=== PATIENT | female | born 1925 | race Caucasian/White ===

== ENCOUNTER 2017-04-13 14:10 | Inpatient (IN) | payer MEDICARE ==
[2017-04-13] VITALS (8 sets, daily range): BP systolic 155–189; BP diastolic 52–76
[~2017-04-13] VITALS: Ht 165.1 cm; Wt 60.0 kg
[2017-04-13] MEDS ORDERED: CALCIUM 600 +600 MG PO (14:44)
[2017-04-13] MEDS ORDERED: PAXIL30 MG PO (14:46)
[2017-04-13] MEDS ORDERED: LEVOTHYROXIN50 MCG PO (14:46)
[2017-04-13] MEDS ORDERED: LOPRESSOR 550 MG/TAB PO (14:47)
[2017-04-13] MEDS ORDERED: BENICAR HCT1 TA1 PO (14:49)
[2017-04-13] MEDS ORDERED: PRAVASTATIN SOD40 MG PO (14:49)
[2017-04-13] MEDS ORDERED: ARICEPT5 MG PO (14:50)
[2017-04-13 14:51] LABS: HEMATOCRIT 36.6 % (37.0-47.0); HEMOGLOBIN 11.9 g/dl (12.0-16.0); IMMATURE GRANULOCYTES 0.4 % (0.0-1.0); MEAN CELL VOLUME 94.6 fL CALC (80.0-100.0); MEAN CORPUSCULAR HGB 30.7 pG CALC (26.0-32.0); MEAN CORPUSCULAR HGB CONC 32.5 g/L CALC (32.0-36.0); NEUT# 3.65 thou/uL (2.00-7.15); RED BLOOD COUNT 3.87 mill/uL (4.20-5.60); RED CELL DISTRI WIDTH 13.5 % (11.5-15.5)
[2017-04-13] MEDS ORDERED: TESSALON PER100 MG PO (14:51)
[2017-04-13] MEDS ORDERED: FOSAMAX PLUS PO (14:51)
[2017-04-13] MEDS ORDERED: MOTRIN800 MG PO (14:52)
[2017-04-13 15:13] LABS: ALKALINE PHOSPHATASE 50 u/l (38-126); ANION GAP 16 (6-22 (CALC)); BILIRUBIN, TOTAL 0.5 mg/dL (0.0-1.4); BUN 20 mg/dL (8-23); BUN/CREATININE RATIO 18 (12-20 (CALC)); CALCIUM 9.7 mg/dL (8.4-10.2); CARBON DIOXIDE 28 mmol/l (22-30); CHLORIDE 103 mmol/l (95-108); CREATININE 1.1 mg/dL (0.5-1.0); GFR 47 ML/MIN (>=60 (CALC)); GFR FOR AFR.AMER. 57 ML/MIN (>=60 (CALC)); GLUCOSE 93 mg/dL (82-115); POTASSIUM 3.8 mmol/l (3.5-5.1); SGOT/AST 27 u/l (9-36); SGPT/ALT 30 u/l (11-66); SODIUM 143 mmol/l (137-146); TOTAL PROTEIN 6.3 g/dL (6.3-8.2)
[2017-04-13 15:24] LABS: URINE BILIRUBIN - DIPSTICK NEGATIVE (NEGATIVE); URINE BLOOD DIPSTICK TRACE-LYSED (NEGATIVE); URINE CLARITY CLEAR; URINE COLOR YELLOW; URINE GLUCOSE - DIPSTICK NEGATIVE (NEGATIVE); URINE KETONE NEGATIVE (NEGATIVE); URINE LEUK ESTERASE NEGATIVE (NEGATIVE); URINE NITRITE - DIPSTICK NEGATIVE (Negative); URINE PH 7.5 (4.5-8.0); URINE PROTEIN - DIPSTICK 100 mg/dL (NEG-TRACE); URINE UROBILINOGEN - DIPSTICK 0.2 E.U./dL (0.2)
[2017-04-13 15:24] LABS: MYOGLOBIN 103 ng/mL (0 - 62)
[2017-04-13 15:33] LABS: URINE SQUAMOUS EPITHELIAL CELL FEW EPI/hpf (0-FEW)
[2017-04-14] VITALS (15 sets, daily range): BP systolic 114–171; BP diastolic 54–92
[2017-04-14 06:37] LABS: HEMATOCRIT 37.3 % (37.0-47.0); IMMATURE GRANULOCYTES 0.3 % (0.0-1.0); MEAN CELL VOLUME 93.7 fL CALC (80.0-100.0); MEAN CORPUSCULAR HGB 30.2 pG CALC (26.0-32.0); MEAN CORPUSCULAR HGB CONC 32.2 g/L CALC (32.0-36.0); NEUT# 6.67 thou/uL (2.00-7.15); RED BLOOD COUNT 3.98 mill/uL (4.20-5.60); RED CELL DISTRI WIDTH 13.4 % (11.5-15.5)
[2017-04-14 06:55] LABS: ALBUMIN 3.9 g/dL (3.2-5.0); ALKALINE PHOSPHATASE 59 u/l (38-126); ANION GAP 14 (6-22 (CALC)); BILIRUBIN, TOTAL 0.6 mg/dL (0.0-1.4); BUN 15 mg/dL (8-23); BUN/CREATININE RATIO 17 (12-20 (CALC)); CARBON DIOXIDE 28 mmol/l (22-30); CHLORIDE 102 mmol/l (95-108); CREATININE 0.9 mg/dL (0.5-1.0); GFR 59 ML/MIN (>=60 (CALC)); GFR FOR AFR.AMER. > 60 ML/MIN (>=60 (CALC)); GLUCOSE 145 mg/dL (82-115); POTASSIUM 3.9 mmol/l (3.5-5.1); SGOT/AST 28 u/l (9-36); SGPT/ALT 31 u/l (11-66); SODIUM 141 mmol/l (137-146)
[2017-04-14 17:20] LABS: HEMATOCRIT 34.7 % (37.0-47.0); HEMOGLOBIN 11.3 g/dl (12.0-16.0); IMMATURE GRANULOCYTES 0.3 % (0.0-1.0); MEAN CELL VOLUME 93.3 fL CALC (80.0-100.0); MEAN CORPUSCULAR HGB 30.4 pG CALC (26.0-32.0); MEAN CORPUSCULAR HGB CONC 32.6 g/L CALC (32.0-36.0); NEUT# 7.01 thou/uL (2.00-7.15); RED BLOOD COUNT 3.72 mill/uL (4.20-5.60); RED CELL DISTRI WIDTH 13.3 % (11.5-15.5)
[2017-04-14 17:57] LABS: ANION GAP 13 (6-22 (CALC)); BUN 13 mg/dL (8-23); BUN/CREATININE RATIO 16 (12-20 (CALC)); CALCIUM 8.5 mg/dL (8.4-10.2); CARBON DIOXIDE 26 mmol/l (22-30); CHLORIDE 100 mmol/l (95-108); CREATININE 0.8 mg/dL (0.5-1.0); GFR > 60 ML/MIN (>=60 (CALC)); GFR FOR AFR.AMER. > 60 ML/MIN (>=60 (CALC)); GLUCOSE 148 mg/dL (82-115); POTASSIUM 3.4 mmol/l (3.5-5.1); SODIUM 136 mmol/l (137-146)
[2017-04-15] VITALS (11 sets, daily range): BP systolic 107–200; BP diastolic 51–99
[2017-04-15 06:00] LABS: HEMATOCRIT 41.5 % (37.0-47.0); HEMOGLOBIN 13.9 g/dl (12.0-16.0); IMMATURE GRANULOCYTES 0.6 % (0.0-1.0); MEAN CORPUSCULAR HGB 30.5 pG CALC (26.0-32.0); MEAN CORPUSCULAR HGB CONC 33.5 g/L CALC (32.0-36.0); NEUT# 12.55 thou/uL (2.00-7.15); RED BLOOD COUNT 4.56 mill/uL (4.20-5.60); RED CELL DISTRI WIDTH 13.2 % (11.5-15.5)
[2017-04-15 06:22] LABS: ALBUMIN 4.4 g/dL (3.2-5.0); ALKALINE PHOSPHATASE 79 u/l (38-126); ANION GAP 17 (6-22 (CALC)); BILIRUBIN, TOTAL 0.7 mg/dL (0.0-1.4); BUN 9 mg/dL (8-23); BUN/CREATININE RATIO 13 (12-20 (CALC)); CALCIUM 8.9 mg/dL (8.4-10.2); CARBON DIOXIDE 25 mmol/l (22-30); CHLORIDE 94 mmol/l (95-108); CREATININE 0.7 mg/dL (0.5-1.0); GFR > 60 ML/MIN (>=60 (CALC)); GFR FOR AFR.AMER. > 60 ML/MIN (>=60 (CALC)); GLUCOSE 206 mg/dL (82-115); POTASSIUM 3.3 mmol/l (3.5-5.1); SGOT/AST 44 u/l (9-36); SGPT/ALT 33 u/l (11-66); SODIUM 133 mmol/l (137-146); TOTAL PROTEIN 6.9 g/dL (6.3-8.2)
[2017-04-15 16:36] LABS: TSH, 3RD GENERATION 1.97 uIU/mL (0.47 - 4.68)
[2017-04-16] VITALS (18 sets, daily range): BP systolic 103–138; BP diastolic 47–80
[2017-04-16 03:49] LABS: URINE BLOOD DIPSTICK LARGE (NEGATIVE); URINE CLARITY CLEAR; URINE COLOR YELLOW; URINE GLUCOSE - DIPSTICK NEGATIVE (NEGATIVE); URINE KETONE TRACE mg/dL (NEGATIVE); URINE LEUK ESTERASE SMALL (Negative); URINE NITRITE - DIPSTICK NEGATIVE (Negative); URINE PROTEIN - DIPSTICK >=300 mg/dL (NEG-TRACE); URINE SPECIFIC GRAVITY >=1.030; URINE UROBILINOGEN - DIPSTICK 0.2 E.U./dL (0.2)
[2017-04-16 04:03] LABS: URINE BILIRUBIN - DIPSTICK NEGATIVE (NEGATIVE)
[2017-04-16 04:30] LABS: URINE RBC 25-50 RBC/hpf (0-5); URINE SQUAMOUS EPITHELIAL CELL FEW EPI/hpf (0-FEW)
[2017-04-16 04:32] LABS: URINE BACTERIA MANY hpf; URINE COARSE GRANULAR CAST FEW lpf; URINE HYALINE CAST FEW lpf (NONE-RARE); URINE MUCUS MODERATE hpf (NONE-FEW); URINE RED BLOOD CELL CAST FEW lpf
[2017-04-16 05:23] LABS: ALBUMIN 3.3 g/dL (3.2-5.0); BILIRUBIN, TOTAL 0.6 mg/dL (0.0-1.4); CALCIUM 8.2 mg/dL (8.4-10.2); CREATININE 1.6 mg/dL (0.5-1.0); POTASSIUM 3.3 mmol/l (3.5-5.1); TOTAL PROTEIN 5.6 g/dL (6.3-8.2)
[2017-04-16 05:59] LABS: HEMATOCRIT 36.6 % (37.0-47.0); HEMOGLOBIN 12.6 g/dl (12.0-16.0); IMMATURE GRANULOCYTES 0.5 % (0.0-1.0); MEAN CELL VOLUME 90.1 fL CALC (80.0-100.0); MEAN CORPUSCULAR HGB CONC 34.4 g/L CALC (32.0-36.0); NEUT# 10.79 thou/uL (2.00-7.15); RED BLOOD COUNT 4.06 mill/uL (4.20-5.60); RED CELL DISTRI WIDTH 13.4 % (11.5-15.5)
[2017-04-17 04:20] VITALS: BP 136/72
[2017-04-17 06:14] LABS: HEMATOCRIT 33.6 % (37.0-47.0); HEMOGLOBIN 11.3 g/dl (12.0-16.0); IMMATURE GRANULOCYTES 0.7 % (0.0-1.0); MEAN CELL VOLUME 90.8 fL CALC (80.0-100.0); MEAN CORPUSCULAR HGB 30.5 pG CALC (26.0-32.0); MEAN CORPUSCULAR HGB CONC 33.6 g/L CALC (32.0-36.0); NEUT# 7.85 thou/uL (2.00-7.15); RED BLOOD COUNT 3.7 mill/uL (4.20-5.60); RED CELL DISTRI WIDTH 13.5 % (11.5-15.5)
[2017-04-17 06:27] LABS: ALBUMIN 2.9 g/dL (3.2-5.0); ALKALINE PHOSPHATASE 55 u/l (38-126); ANION GAP 10 (6-22 (CALC)); BILIRUBIN, TOTAL 0.5 mg/dL (0.0-1.4); BUN 21 mg/dL (8-23); BUN/CREATININE RATIO 20 (12-20 (CALC)); CALCIUM 8.2 mg/dL (8.4-10.2); CARBON DIOXIDE 23 mmol/l (22-30); CHLORIDE 101 mmol/l (95-108); GFR 52 ML/MIN (>=60 (CALC)); GFR FOR AFR.AMER. > 60 ML/MIN (>=60 (CALC)); GLUCOSE 138 mg/dL (82-115); POTASSIUM 3.5 mmol/l (3.5-5.1); SGOT/AST 48 u/l (9-36); SGPT/ALT 35 u/l (11-66); SODIUM 131 mmol/l (137-146); TOTAL PROTEIN 5.1 g/dL (6.3-8.2)
[2017-04-17 07:53] VITALS: BP 126/73
[2017-04-17 11:05] VITALS: BP 122/64
[2017-04-17 15:40] VITALS: BP 130/66
[2017-04-17 19:00] VITALS: BP 141/59
[2017-04-17 23:00] VITALS: BP 147/68
[2017-04-18 04:38] VITALS: BP 154/67
[2017-04-18 06:05] LABS: HEMATOCRIT 33.3 % (37.0-47.0); HEMOGLOBIN 11.1 g/dl (12.0-16.0); IMMATURE GRANULOCYTES 0.4 % (0.0-1.0); MEAN CELL VOLUME 92.2 fL CALC (80.0-100.0); MEAN CORPUSCULAR HGB 30.7 pG CALC (26.0-32.0); MEAN CORPUSCULAR HGB CONC 33.3 g/L CALC (32.0-36.0); NEUT# 6.53 thou/uL (2.00-7.15); RED BLOOD COUNT 3.61 mill/uL (4.20-5.60); RED CELL DISTRI WIDTH 13.8 % (11.5-15.5)
[2017-04-18 06:27] LABS: ALBUMIN 2.9 g/dL (3.2-5.0); ALKALINE PHOSPHATASE 58 u/l (38-126); ANION GAP 11 (6-22 (CALC)); BILIRUBIN, TOTAL 0.4 mg/dL (0.0-1.4); BUN 16 mg/dL (8-23); BUN/CREATININE RATIO 20 (12-20 (CALC)); CALCIUM 8.6 mg/dL (8.4-10.2); CARBON DIOXIDE 23 mmol/l (22-30); CHLORIDE 108 mmol/l (95-108); CREATININE 0.8 mg/dL (0.5-1.0); GFR > 60 ML/MIN (>=60 (CALC)); GFR FOR AFR.AMER. > 60 ML/MIN (>=60 (CALC)); GLUCOSE 131 mg/dL (82-115); POTASSIUM 3.9 mmol/l (3.5-5.1); SGOT/AST 56 u/l (9-36); SGPT/ALT 53 u/l (11-66); SODIUM 138 mmol/l (137-146); TOTAL PROTEIN 5.3 g/dL (6.3-8.2)
[2017-04-18 07:44] VITALS: BP 160/89
[2017-04-18 11:19] VITALS: BP 157/71
[2017-04-18 15:53] VITALS: BP 149/70
[2017-04-18 18:00] VITALS: BP 149/78
[2017-04-18 23:57] VITALS: BP 139/77
[2017-04-19 05:11] VITALS: BP 191/88
[2017-04-19 06:26] LABS: HEMATOCRIT 31.9 % (37.0-47.0); HEMOGLOBIN 10.4 g/dl (12.0-16.0); IMMATURE GRANULOCYTES 0.4 % (0.0-1.0); MEAN CELL VOLUME 93.5 fL CALC (80.0-100.0); MEAN CORPUSCULAR HGB 30.5 pG CALC (26.0-32.0); MEAN CORPUSCULAR HGB CONC 32.6 g/L CALC (32.0-36.0); NEUT# 4.05 thou/uL (2.00-7.15); RED BLOOD COUNT 3.41 mill/uL (4.20-5.60); RED CELL DISTRI WIDTH 13.8 % (11.5-15.5)
[2017-04-19 06:39] VITALS: BP 154/89
[2017-04-19 07:21] LABS: ANION GAP 10 (6-22 (CALC)); BUN 16 mg/dL (8-23); BUN/CREATININE RATIO 23 (12-20 (CALC)); CALCIUM 8.6 mg/dL (8.4-10.2); CARBON DIOXIDE 25 mmol/l (22-30); CHLORIDE 106 mmol/l (95-108); CREATININE 0.7 mg/dL (0.5-1.0); GFR > 60 ML/MIN (>=60 (CALC)); GFR FOR AFR.AMER. > 60 ML/MIN (>=60 (CALC)); GLUCOSE 119 mg/dL (82-115); SODIUM 137 mmol/l (137-146)
[2017-04-19 07:28] VITALS: BP 172/70
== END 2017-04-19 15:19 | disposition home or self-care (01) | DRG 101 ==
LOC: ED 14:10 → ED-I 16:32 → ED 16:56 → ICU 16:57 → MS2 04-16 16:59
PROVIDERS: Emergency Medicine; ADMIT Internal Medicine Geriatric Medicine; ATTEND Internal Medicine Geriatric Medicine
PROC: 0T9B70Z Drainage of Bladder with Drainage Device, Via Natural or Artificial Opening (ICD-10-PCS; principal; 2017-04-13)
DX: R56.9 Unspecified convulsions (principal); F03.90 Unspecified dementia, unspecified severity, without behavioral disturbance, psychotic disturbance, mood disturbance, and anxiety; F19.20 Other psychoactive substance dependence, uncomplicated; I10 Essential (primary) hypertension; M19.90 Unspecified osteoarthritis, unspecified site; F41.1 Generalized anxiety disorder; I25.10 Atherosclerotic heart disease of native coronary artery without angina pectoris; F32.9 Major depressive disorder, single episode, unspecified; E03.9 Hypothyroidism, unspecified; G89.29 Other chronic pain; R62.7 Adult failure to thrive
CPT/HCPCS: J2060